=== PATIENT | female | born 1945 | race Caucasian/White ===

== ENCOUNTER 2017-11-08 10:46 | Outpatient (CLI) | payer OTHER ==
[2017-11-08 13:09] LABS: BASOPHILS % (AUTO) 0.4 % (0-1); EOSINOPHILS # (AUTO) 0.2 X10'3 (0-0.9); EOSINOPHILS % (AUTO) 3.6 % (0-6); HEMATOCRIT 38.4 % (35.0-45.0); HEMOGLOBIN 13.4 g/dl (12.0-16.0); LYMPHOCYTES # (AUTO) 1.6 X10'3 (1.1-4.8); LYMPHOCYTES % (AUTO) 26.9 % (21-51); MEAN CORPUSCULAR HEMOGLOBIN 30.6 PG (27.0-31.0); MEAN CORPUSCULAR HGB CONC 34.9 % (33.0-36.5); MEAN CORPUSCULAR VOLUME 87.5 FL (78-98); MEAN PLATELET VOLUME 9.9 FL (7.4-10.4); MONOCYTES # (AUTO) 0.4 X10'3 (0-0.9); MONOCYTES % (AUTO) 7.2 % (2-12); NEUTROPHILS # (AUTO) 3.6 X10'3 (1.8-7.7); NEUTROPHILS % (AUTO) 61.9 % (42-75); PLATELET COUNT 208 X10'3 (140-440); RED BLOOD COUNT 4.39 X10'6 (4.20-5.60); RED CELL DISTRIBUTION WIDTH 13.2 % (11.5-14.5); WHITE BLOOD COUNT 5.8 X10'3 (4.5-11.0)
[2017-11-08 13:36] LABS: ALBUMIN 4.3 G/DL (3.4-5.0); ANION GAP 11 (8-16); BLOOD UREA NITROGEN 21 MG/DL (7-18); BUN/CREATININE RATIO 22.8 (6.6-38.0); CALCIUM 9.1 MG/DL (8.5-10.1); CHLORIDE 106 MMOL/L (99-107); CREATININE 0.92 MG/DL (0.40-0.90); GLUCOSE 105 MG/DL (70-104); MAGNESIUM 2.1 MG/DL (1.5-2.4); POTASSIUM 3.5 MMOL/L (3.5-5.1); SODIUM 144 MMOL/L (135-145); TOTAL CARBON DIOXIDE 27.2 MMOL/L (24-32); eGFR 61 ML/MIN
== END 2017-11-08 23:59 | disposition home or self-care (01) ==
LOC: LAB 10:46
PROVIDERS: ATTEND Family Medicine
DX: R00.2 Palpitations (principal); I10 Essential (primary) hypertension
CPT/HCPCS: 36415; 80048; 83735; 84439; 84443; 85025

== ENCOUNTER 2017-11-16 08:03 | Outpatient (CLI) | payer OTHER ==
[2017-11-16] VITALS (7 sets, daily range): BP systolic 129–160; BP diastolic 63–76
[~2017-11-16] VITALS: Ht 170.2 cm; Wt 100.0 kg
[2017-11-16] MEDS ORDERED: regadenoson 0.4mg/5ml syringe IV ONE ×2 (08:40→09:26)
[2017-11-16] MEDS ORDERED: nitroGLYCERIN 0.4mg SUBLingual tab SL PRN (08:40)
[2017-11-16] MEDS ORDERED: metoprolol tartrate 1mg/ml inj IV PRN (08:40)
[2017-11-16] MEDS ORDERED: CAFFEINE CITRATE 60 MG/3 ML injection vial IV ONE (09:26)
== END 2017-11-16 23:59 | disposition home or self-care (01) ==
LOC: RAD 08:03
PROVIDERS: ATTEND Internal Medicine Cardiovascular Disease
DX: I08.0 Rheumatic disorders of both mitral and aortic valves (principal); I10 Essential (primary) hypertension; R00.1 Bradycardia, unspecified
CPT/HCPCS: 78452; 93017; 93306; A9500

== ENCOUNTER 2018-06-13 10:16 | Outpatient (CLI) | payer MEDICARE, OTHER ==
[2018-06-13 11:05] LABS: BASOPHILS % (AUTO) 0.6 % (0-1); EOSINOPHILS # (AUTO) 0.3 X10'3 (0-0.9); EOSINOPHILS % (AUTO) 4.5 % (0-6); HEMATOCRIT 42.8 % (35.0-45.0); HEMOGLOBIN 14.4 g/dl (12.0-16.0); LYMPHOCYTES # (AUTO) 1.7 X10'3 (1.1-4.8); LYMPHOCYTES % (AUTO) 28.7 % (21-51); MEAN CORPUSCULAR HGB CONC 33.5 % (33.0-36.5); MEAN CORPUSCULAR VOLUME 89.5 FL (78-98); MEAN PLATELET VOLUME 9.8 FL (7.4-10.4); MONOCYTES # (AUTO) 0.5 X10'3 (0-0.9); MONOCYTES % (AUTO) 8.9 % (2-12); NEUTROPHILS # (AUTO) 3.3 X10'3 (1.8-7.7); NEUTROPHILS % (AUTO) 57.3 % (42-75); PLATELET COUNT 227 X10'3 (140-440); RED BLOOD COUNT 4.78 X10'6 (4.20-5.60); WHITE BLOOD COUNT 5.8 X10'3 (4.5-11.0)
[2018-06-13 11:28] LABS: ALANINE AMINOTRANSFERASE 25 U/L (12-78); ALBUMIN 4.4 G/DL (3.4-5.0); ALBUMIN/GLOBULIN RATIO 1.5 (1.1-1.5); ALKALINE PHOSPHATASE 66 IU/L (46-116); ANION GAP 6 (8-16); ASPARTATE AMINO TRANSFERASE 19 U/L (10-37); BILIRUBIN,TOTAL 0.5 MG/DL (0.1-1.0); BLOOD UREA NITROGEN 13 MG/DL (7-18); BUN/CREATININE RATIO 18.6 (6.6-38.0); CALCIUM 8.5 MG/DL (8.5-10.1); CHLORIDE 104 MMOL/L (99-107); CHOL/HDL RATIO 4.7 (0.00-4.99); CHOLESTEROL 202 MG/DL (0-200); GLUCOSE 101 MG/DL (70-104); HDL CHOLESTEROL 43 MG/DL (35-60); LDL CHOLESTEROL 135 MG/DL (50-100); POTASSIUM 3.8 MMOL/L (3.5-5.1); SODIUM 140 MMOL/L (135-145); TOTAL CARBON DIOXIDE 29.6 MMOL/L (24-32); TOTAL PROTEIN 7.4 G/DL (6.4-8.2); TRIGLYCERIDES 156 MG/DL (20-135); eGFR 83 ML/MIN
== END 2018-06-13 23:59 | disposition home or self-care (01) ==
LOC: LAB 10:16
PROVIDERS: ATTEND Family Medicine
DX: I10 Essential (primary) hypertension (principal); G47.00 Insomnia, unspecified; E05.90 Thyrotoxicosis, unspecified without thyrotoxic crisis or storm; M25.559 Pain in unspecified hip
CPT/HCPCS: 36415; 80053; 80061; 84439; 84443; 85025

== ENCOUNTER 2018-06-27 09:46 | Outpatient (CLI) | payer MEDICARE, OTHER | END 2018-06-27 23:59 | disposition home or self-care (01) | LOC: RAD 09:46 | PROVIDERS: ATTEND Family Medicine | DX: E04.2 Nontoxic multinodular goiter (principal); E05.90 Thyrotoxicosis, unspecified without thyrotoxic crisis or storm; I10 Essential (primary) hypertension | CPT/HCPCS: 76536 ==

== ENCOUNTER 2018-09-23 08:30 | Inpatient (IN) | payer MEDICARE, OTHER | END 2018-09-26 12:25 | disposition home or self-care (01) | LOC: PAS IN 08:30 → ORTHO 4S 14:00 | PROC: 0SR90J9 Replacement of Right Hip Joint with Synthetic Substitute, Cemented, Open Approach (ICD-10-PCS; principal; 2018-09-23 10:07) | DX: M16.11 Unilateral primary osteoarthritis, right hip (principal) ==

== ENCOUNTER 2021-06-19 06:50 | Emergency (ER) | payer MEDICARE, OTHER ==
[~2021-06-19] VITALS: Ht 167.6 cm; Wt 104.5 kg
[~2021-06-19 06:50] MED LIST: AMLO1CAP6 PO; ASPI-1265 PO; ESCI5TAB PO; HYDR-3972 PO; SOTA80TA PO
[2021-06-19 06:57] VITALS: BP 189/76
[2021-06-19] MEDS ORDERED: LIDOcaine 1% W/epiNEPHrine 1:200,000 10ml vial IJ ONE (07:20)
[2021-06-19] MEDS ORDERED: LIDOcaine 1% w/epiNEPHrine 1:200,000 30ml vial IJ ONE (07:25)
[2021-06-19] MEDS ORDERED: LIDOcaine 1% W/epiNEPHrine 1:100,000 20ml vial IJ ONE (07:35)
[2021-06-19] MEDS ORDERED: bacitracin 15gm ointment TP ONE ×2 (08:20→08:21)
[2021-06-19] MEDS ORDERED: TETanus/Pertussis (Acell)/Diphther VAC/PF (Tdap-Adult) 0.5ml syringe IMVAC ONE (08:25)
== END 2021-06-19 08:43 | disposition home or self-care (01) ==
LOC: ER 06:50
DX: S61.311A Laceration without foreign body of left index finger with damage to nail, initial encounter (principal); Z72.89 Other problems related to lifestyle; Z79.82 Long term (current) use of aspirin; Z79.899 Other long term (current) drug therapy; W26.8XXA Contact with other sharp object(s), not elsewhere classified, initial encounter; Y93.89 Activity, other specified; Y92.89 Other specified places as the place of occurrence of the external cause; Y99.8 Other external cause status
CPT/HCPCS: 12001; 90471; 90715; 99283; J3490

== ENCOUNTER 2022-01-19 20:07 | Emergency (ER) | payer MEDICARE ==
[~2022-01-19] VITALS: Ht 167.6 cm; Wt 104.5 kg
[2022-01-19] MEDS ORDERED: loperamide 2mg capsule PO ONE (21:00)
[2022-01-19] MEDS ORDERED: ondansetron 4mg rapidly disintigrating tab PO ONE (21:00)
[2022-01-19] MEDS ORDERED: diphenoxylate/atropine 2.5mg/0.025mg per 5ml oral solution PO PRN (21:10)
[2022-01-19] MEDS ORDERED: diphenoxylate/atropine tablet (Lomotil) PO PRN (21:27)
[2022-01-19] MEDS: diphenoxylate/atropine tablet (Lomotil) PO PRN ×4 (21:33→23:24)
[2022-01-19 21:39] LABS: EOSINOPHILS # (AUTO) 0.1 X10'3 (0-0.9); HEMOGLOBIN 14.2 g/dl (12.0-16.0); MONOCYTES # (AUTO) 0.7 X10'3 (0-0.9)
[2022-01-19 21:40] LABS: NEUTROPHILS # (AUTO) 4.2 X10'3 (1.8-7.7)
[2022-01-19 21:44] LABS: BASOPHILS % (AUTO) 0.4 % (0-1); EOSINOPHILS % (AUTO) 1.5 % (0-6); HEMATOCRIT 41.5 % (35.0-45.0); LYMPHOCYTES % (AUTO) 16.9 % (21-51); MEAN CORPUSCULAR HEMOGLOBIN 30.4 PG (27.0-31.0); MEAN CORPUSCULAR HGB CONC 34.3 g/dL (33.0-36.5); MEAN CORPUSCULAR VOLUME 88.7 FL (78-98); MEAN PLATELET VOLUME 9.5 FL (7.4-10.4); MONOCYTES % (AUTO) 11.4 % (2-12); NEUTROPHILS % (AUTO) 69.8 % (42-75); PLATELET COUNT 210 X10'3 (140-440); RED BLOOD COUNT 4.67 X10'6 (4.20-5.60); RED CELL DISTRIBUTION WIDTH 13.5 % (11.5-14.5)
[2022-01-19 21:48] LABS: ALANINE AMINOTRANSFERASE 32 U/L (12-78); ALBUMIN 3.8 G/DL (3.4-5.0); ALBUMIN/GLOBULIN RATIO 1.1 (1.1-1.5); ALKALINE PHOSPHATASE 63 IU/L (46-116); ANION GAP 11 (8-16); ASPARTATE AMINO TRANSFERASE 35 U/L (10-37); BILIRUBIN,TOTAL 0.4 MG/DL (0.1-1.0); BLOOD UREA NITROGEN 25 MG/DL (7-18); BUN/CREATININE RATIO 21.7 (6.6-38.0); CALCIUM 8.3 MG/DL (8.5-10.1); CHLORIDE 105 MMOL/L (99-107); CREATININE 1.15 MG/DL (0.40-0.90); GLUCOSE 108 MG/DL (70-104); LIPASE 64 U/L (73-393); POTASSIUM 3.8 MMOL/L (3.5-5.1); SODIUM 141 MMOL/L (135-145); TOTAL CARBON DIOXIDE 25.1 MMOL/L (24-32); TOTAL PROTEIN 7.4 G/DL (6.4-8.2); eGFR 46 ML/MIN
[2022-01-19] MEDS ORDERED: normal saline 1000ml 1,000 ML IV ONE ×2 (22:00→22:25)
[2022-01-19] MEDS ORDERED: DIPH-186 PO (22:43)
[2022-01-19] MEDS ORDERED: ONDA4TAB12 PO (22:43)
--- NOTE | 2022-01-19 23:22 | NUR ---
IV DC'D PT BEING DISCHARGED. DRESSING APPLIED
== END 2022-01-19 23:25 | disposition home or self-care (01) ==
LOC: ER 20:08
DX: R19.7 Diarrhea, unspecified (principal); Z20.822 Contact with and (suspected) exposure to COVID-19; E86.0 Dehydration; R10.84 Generalized abdominal pain; Z79.899 Other long term (current) drug therapy; Z79.82 Long term (current) use of aspirin
CPT/HCPCS: 36415; 80053; 83690; 85025; 87635; 96360; 99284; C9803; J7030

== ENCOUNTER → 2023-12-26 | Outpatient (CLI) | payer MEDICARE ==
[~2023-12-26] MED LIST changes: +DIPH-186 PO; +ONDA4TAB12 PO
[2023-12-26 11:15] LABS: BILIRUBIN,URINE NEGATIVE (Neg); CLARITY,URINE SLIGHTLY CLOUDY (Clear); COLOR,URINE YELLOW (Yellow); GLUCOSE, URINE NEGATIVE (Neg); KETONES,URINE NEGATIVE (Neg); LEUKOCYTE ESTERASE ,URINE TRACE (Neg); NITRITES, URINE NEGATIVE (Neg); OCCULT BLOOD,URINE NEGATIVE (Neg); PROTEIN,URINE NEGATIVE (Neg); UROBILINOGEN,URINE 0.2 E.U/dL (0.2-1.0)
[2023-12-26 11:17] LABS: BASOPHILS % (AUTO) 0.5 % (0-1); EOSINOPHILS # (AUTO) 0.2 X10'3 (0-0.9); EOSINOPHILS % (AUTO) 3.7 % (0-6); HEMATOCRIT 40.5 % (35.0-45.0); HEMOGLOBIN 13.9 g/dl (12.0-16.0); LYMPHOCYTES # (AUTO) 1.1 X10'3 (1.1-4.8); LYMPHOCYTES % (AUTO) 22.4 % (21-51); MEAN CORPUSCULAR HEMOGLOBIN 30.9 PG (27.0-31.0); MEAN CORPUSCULAR HGB CONC 34.4 g/dL (33.0-36.5); MEAN CORPUSCULAR VOLUME 89.8 FL (78-98); MEAN PLATELET VOLUME 8.8 FL (7.4-10.4); MONOCYTES # (AUTO) 0.5 X10'3 (0-0.9); MONOCYTES % (AUTO) 8.9 % (2-12); NEUTROPHILS # (AUTO) 3.3 X10'3 (1.8-7.7); NEUTROPHILS % (AUTO) 64.5 % (42-75); PLATELET COUNT 250 X10'3 (140-440); RED BLOOD COUNT 4.51 X10'6 (4.20-5.60); RED CELL DISTRIBUTION WIDTH 13.4 % (11.5-14.5); WHITE BLOOD COUNT 5.1 X10'3 (4.5-11.0)
[2023-12-26 11:20] LABS: UA COLLECTION TYPE NON-SPECIFIED
[2023-12-26 11:21] LABS: MUCUS STRANDS FEW /LPF (Neg); SQUAMOUS EPITHELIAL CELL,UR MODERATE /LPF (FEW)
[2023-12-26 11:22] LABS: COARSE GRANULAR CAST 0-3 /LPF (NEGATIVE)
[2023-12-26 11:23] LABS: AMORPHOUS URATES 1+; WBC,URINE 0-4 /HPF (0-4)
[2023-12-26 11:24] LABS: BACTERIA,URINE FEW /HPF (Neg); RBC,URINE 0-2 /HPF (0-2)
[2023-12-26 11:44] LABS: ALANINE AMINOTRANSFERASE 26 U/L (12-78); ALBUMIN/GLOBULIN RATIO 1.2 (1.1-1.5); ALKALINE PHOSPHATASE 57 IU/L (46-116); ANION GAP 7 (8-16); ASPARTATE AMINO TRANSFERASE 16 U/L (10-37); BILIRUBIN,TOTAL 0.5 MG/DL (0.1-1.0); BLOOD UREA NITROGEN 18 MG/DL (7-18); BUN/CREATININE RATIO 23.1 (10.0-20.0); CALCIUM 8.5 MG/DL (8.5-10.1); CHLORIDE 103 MMOL/L (99-107); CHOL/HDL RATIO 4.9 (0.00-4.99); CHOLESTEROL 183 MG/DL (0-200); CREATININE 0.78 MG/DL (0.40-0.90); FREE T4 (FREE THYROXINE) 0.74 NG/DL (0.73-1.40); GLUCOSE 118 MG/DL (70-104); HDL CHOLESTEROL 37 MG/DL (35-60); LDL CHOLESTEROL 117 MG/DL (50-100); SODIUM 140 MMOL/L (135-145); THYROID STIMULATING HORMONE 2.24 ulU/ml (0.34-4.50); TOTAL CARBON DIOXIDE 30.4 MMOL/L (24-32); TOTAL PROTEIN 7.3 G/DL (6.4-8.2); TRIGLYCERIDES 188 MG/DL (20-135); eGFR 72 ML/MIN
[2023-12-27 11:59] LABS: CREATININE, URINE 109.4 mg/dL (Not Estab.); MICROALBUMIN,U,RANDOM 6.6 ug/mL (Not Estab.)
== END | disposition home or self-care (01) ==
LOC: LAB 10:06
PROVIDERS: ATTEND Family Medicine
DX: Z00.01 Encounter for general adult medical examination with abnormal findings (principal); Z13.220 Encounter for screening for lipoid disorders; I10 Essential (primary) hypertension; M25.561 Pain in right knee; E05.90 Thyrotoxicosis, unspecified without thyrotoxic crisis or storm; Z96.651 Presence of right artificial knee joint
CPT/HCPCS: 36415; 73564; 80053; 80061; 81001; 82043; 82570; 84439; 84443; 85025; 85651; 86140; 87088

== ENCOUNTER 2024-08-21 10:38 | Outpatient (CLI) | payer MEDICARE ==
[~2024-08-21 10:38] MED LIST changes: +ONDA-243 PO; -ONDA4TAB12 PO
[2024-08-21 11:16] LABS: BASOPHILS % (AUTO) 0.6 % (0-1); EOSINOPHILS # (AUTO) 0.2 X10'3 (0-0.9); EOSINOPHILS % (AUTO) 2.6 % (0-6); HEMATOCRIT 41.2 % (35.0-45.0); HEMOGLOBIN 14.3 g/dl (12.0-16.0); LYMPHOCYTES # (AUTO) 1.2 X10'3 (1.1-4.8); MEAN CORPUSCULAR HEMOGLOBIN 31.4 PG (27.0-31.0); MEAN CORPUSCULAR HGB CONC 34.7 g/dL (33.0-36.5); MEAN CORPUSCULAR VOLUME 90.6 FL (78-98); MEAN PLATELET VOLUME 9.2 FL (7.4-10.4); MONOCYTES # (AUTO) 0.5 X10'3 (0-0.9); MONOCYTES % (AUTO) 8.1 % (2-12); NEUTROPHILS # (AUTO) 4.3 X10'3 (1.8-7.7); NEUTROPHILS % (AUTO) 69.7 % (42-75); PLATELET COUNT 249 X10'3 (140-440); RED BLOOD COUNT 4.55 X10'6 (4.20-5.60); WHITE BLOOD COUNT 6.2 X10'3 (4.5-11.0)
[2024-08-21 11:42] LABS: ALANINE AMINOTRANSFERASE 22 U/L (12-78); ALBUMIN 4.2 G/DL (3.4-5.0); ALBUMIN/GLOBULIN RATIO 1.2 (1.1-1.5); ALKALINE PHOSPHATASE 59 IU/L (46-116); ANION GAP 6 (8-16); ASPARTATE AMINO TRANSFERASE 13 U/L (10-37); BILIRUBIN,TOTAL 0.5 MG/DL (0.1-1.0); BLOOD UREA NITROGEN 15 MG/DL (7-18); BUN/CREATININE RATIO 20.3 (10.0-20.0); CALCIUM 8.6 MG/DL (8.5-10.1); CHLORIDE 105 MMOL/L (99-107); CHOL/HDL RATIO 4.2 (0.00-4.99); CHOLESTEROL 217 MG/DL (0-200); CREATININE 0.74 MG/DL (0.40-0.90); FREE T4 (FREE THYROXINE) 0.87 NG/DL (0.73-1.40); GLUCOSE 80 MG/DL (70-104); HDL CHOLESTEROL 52 MG/DL (35-60); LDL CHOLESTEROL 139 MG/DL (50-100); POTASSIUM 4.2 MMOL/L (3.5-5.1); SODIUM 143 MMOL/L (135-145); TOTAL PROTEIN 7.8 G/DL (6.4-8.2); TRIGLYCERIDES 105 MG/DL (20-135); eGFR 76 ML/MIN
== END 2024-08-21 23:59 | disposition home or self-care (01) ==
LOC: LAB 10:38
PROVIDERS: ATTEND Nurse Practitioner
DX: I10 Essential (primary) hypertension (principal); R79.89 Other specified abnormal findings of blood chemistry; E55.9 Vitamin D deficiency, unspecified
CPT/HCPCS: 36415; 80053; 80061; 82306; 83036; 84439; 84443; 85025

== ENCOUNTER 2024-09-26 15:43 | Emergency (ER) | payer MEDICARE ==
[~2024-09-26] VITALS: Ht 166.4 cm; Wt 88.2 kg
[2024-09-26 15:52] VITALS: TEMP 97.9
[2024-09-26 16:57] LABS: BASOPHILS % (AUTO) 0.3 % (0-1); EOSINOPHILS # (AUTO) 0.2 X10'3 (0-0.9); HEMATOCRIT 40.1 % (35.0-45.0); HEMOGLOBIN 13.7 g/dl (12.0-16.0); LYMPHOCYTES # (AUTO) 1.1 X10'3 (1.1-4.8); LYMPHOCYTES % (AUTO) 12.8 % (21-51); MEAN CORPUSCULAR HEMOGLOBIN 31.1 PG (27.0-31.0); MEAN CORPUSCULAR HGB CONC 34.2 g/dL (33.0-36.5); MEAN CORPUSCULAR VOLUME 90.9 FL (78-98); MONOCYTES # (AUTO) 0.9 X10'3 (0-0.9); MONOCYTES % (AUTO) 11.1 % (2-12); NEUTROPHILS # (AUTO) 6.3 X10'3 (1.8-7.7); NEUTROPHILS % (AUTO) 73.8 % (42-75); PLATELET COUNT 206 X10'3 (140-440); RED BLOOD COUNT 4.41 X10'6 (4.20-5.60); RED CELL DISTRIBUTION WIDTH 13.6 % (11.5-14.5); WHITE BLOOD COUNT 8.6 X10'3 (4.5-11.0)
[2024-09-26] MEDS: morphine 4 MG/ML inj SYRINge IV ONE ×2 (16:59→18:02)
[2024-09-26] MEDS: ondansetron/PF 4mg/2ml inj IV ONE (16:59)
[2024-09-26 17:15] LABS: ALANINE AMINOTRANSFERASE 16 U/L (12-78); ALBUMIN 3.7 G/DL (3.4-5.0); ALBUMIN/GLOBULIN RATIO 0.9 (1.1-1.5); ALKALINE PHOSPHATASE 69 IU/L (46-116); ANION GAP 8 (8-16); ASPARTATE AMINO TRANSFERASE 12 U/L (10-37); BILIRUBIN,TOTAL 0.6 MG/DL (0.1-1.0); BLOOD UREA NITROGEN 15 MG/DL (7-18); BUN/CREATININE RATIO 23.1 (10.0-20.0); CALCIUM 8.4 MG/DL (8.5-10.1); CHLORIDE 104 MMOL/L (99-107); CREATININE 0.65 MG/DL (0.40-0.90); GLUCOSE 86 MG/DL (70-104); POTASSIUM 3.8 MMOL/L (3.5-5.1); SODIUM 141 MMOL/L (135-145); TOTAL CARBON DIOXIDE 28.9 MMOL/L (24-32); TOTAL PROTEIN 7.6 G/DL (6.4-8.2); eCRCL 68 ML/MIN; eGFR 89 ML/MIN
[2024-09-26] MEDS: dexamethasone sod phosphate 10mg/ml inj IV STA (18:01)
[2024-09-26 18:25] VITALS: BP 160/79; PULSE 80; RESP 18; O2SAT 96
[2024-09-26] MEDS: HYDROcodone/acetaminophen 10/325mg tab PO ONE (18:47)
[2024-09-26] MEDS ORDERED: HYDR-3972 PO ×2 (18:50→18:51)
== END 2024-09-26 19:14 | disposition home or self-care (01) ==
LOC: ER 15:43
DX: M50.322 Other cervical disc degeneration at C5-C6 level (principal); M54.2 Cervicalgia; R51.9 Headache, unspecified; I10 Essential (primary) hypertension; Z79.82 Long term (current) use of aspirin; Z79.899 Other long term (current) drug therapy; Z72.89 Other problems related to lifestyle
CPT/HCPCS: 36415; 70450; 72125; 80053; 85025; 93005; 96374; 96375; 99285; J1100; J2270; J2405

== ENCOUNTER 2024-10-10 08:21 | Outpatient (CLI) | payer MEDICARE, OTHER | END 2024-10-10 23:59 | disposition home or self-care (01) | LOC: MRI02 08:21 | PROVIDERS: ATTEND Nurse Practitioner | DX: M50.121 Cervical disc disorder at C4-C5 level with radiculopathy (principal); M48.02 Spinal stenosis, cervical region; M47.812 Spondylosis without myelopathy or radiculopathy, cervical region | CPT/HCPCS: 72141 ==

== ENCOUNTER 2025-02-05 09:32 | Outpatient (CLI) | payer MEDICARE, OTHER ==
--- NOTE | 2025-02-06 08:57 | RADIOLOGY REPORT ---
CLINICAL INDICATION: HIP BURSITIS COMPARISON: DI KNEE, COMP 4 VW MIN on DOS: 12/26/23 TECHNIQUE: Multiplanar, multi-sequence MRI of the right hip was performed without intravenous contrast. Contrast: None INTERPRETATION: Bones/joints: There is a right hip replacement. There susceptibility artifact from the presence of th e prosthesis. Remote from the prosthesis, the bone marrow signal is homogeneous and unremarkable. No marrow replacing lesion or fracture. Small right hip joint effusion. No synovitis. Tendons, muscles and bursae: There is no tendon abnormality. There is mild fatty replacement of the r ight gluteus minimus muscle, expected finding post surgery. No intramuscular edema. No bursitis. Other soft tissues: No lymphadenopathy. No pelvic free fluid. IMPRESSION: 1. Status post right hip replacement with artifact from the hardware limiting evaluation of regional structures. Small right hip joint effusion. No bursitis. No bone marrow signal abnormality.
== END 2025-02-05 23:59 | disposition home or self-care (01) ==
LOC: MRI 09:32
PROVIDERS: ATTEND Nurse Practitioner
DX: M48.02 Spinal stenosis, cervical region (principal); M54.2 Cervicalgia; Z96.641 Presence of right artificial hip joint
CPT/HCPCS: 73721

== ENCOUNTER 2025-03-16 14:13 | Outpatient (CLI) | payer MEDICARE, OTHER ==
--- NOTE | 2025-03-16 15:20 | RADIOLOGY REPORT ---
EXAM: MR MRI LUMBAR SPINE INDICATION: SPONDYLOSIS W/O MYELOPATHY OR RADICULOPATHY, LUMBAR REGION TECHNIQUE: Multiplanar, multisequence MR images of the lumbar spine were obtained without the adminis tration of IV contrast. COMPARISON: None FINDINGS: [ANATOMY]: Five lumbar-type vertebral bodies are present. The most inferior well-formed disc space wi ll be referred to as L5-S1 for purposes of numbering in this report. [VERTEBRAL BODIES]: The vertebral bodies are normal in height, alignment, and marrow signal. opposing endplate modic type 1 endplate degenerative change 5. [SPINAL CANAL]: The conus medullaris is normal in signal and morphology, terminating at the L1-L2 lev el. No significant spinal canal narrowing [FACETS]: Mild bilateral multilevel facet arthropathy. [OTHER]: Benign-appearing exophytic cysts of the left anterior kidney LEVEL BY LEVEL DISCUSSION: [T12-L1]: Unremarkable. [L1-L2]: Unremarkable. [L2-L3]: Trace broad-based posterior disc protrusion measuring 2-3 mm with bilateral inferior foramin al extension subsequent mild bilateral. Mild posterior epidural lipomatosis. Effacement of the later al recess [L3-L4]: 3 mm broad-based posterior disc protrusion bilateral inferior foraminal extension of the sma ll bilateral foraminal narrowing, severe of the left facet arthropathy [L4-L5]: 3 mm broad-based posterior disc protrusion with effacement of the lateral recesses severe fo raminal narrowing. Facet arthropathy [L5-S1]: 3 mm central disc protrusion with minimal left inferior foraminal extension mild bilateral f oraminal IMPRESSION: 1. Degenerative change as detailed above with the areas of foraminal narrowing and disc herniations. 2. Modic type 1 endplate degenerative change centered at L4-5, which may be symptomatic.
== END 2025-03-16 23:59 | disposition home or self-care (01) ==
LOC: MRI02 14:13
PROVIDERS: ATTEND Anesthesiology
DX: M51.27 Other intervertebral disc displacement, lumbosacral region (principal); M25.551 Pain in right hip; M47.816 Spondylosis without myelopathy or radiculopathy, lumbar region; M48.061 Spinal stenosis, lumbar region without neurogenic claudication; N28.1 Cyst of kidney, acquired
CPT/HCPCS: 72148

== ENCOUNTER 2025-06-26 15:04 | Outpatient (CLI) | payer MEDICARE, OTHER ==
[2025-06-26 15:43] LABS: MEAN PLATELET VOLUME 8.9 FL (7.4-10.4); RED CELL DISTRIBUTION WIDTH 13.5 % (11.5-14.5)
[2025-06-26 16:01] LABS: CHOL/HDL RATIO 4.1 (0.00-4.99); CREATININE 0.68 MG/DL (0.40-0.90); LDL CHOLESTEROL 149 MG/DL (50-100); TOTAL CARBON DIOXIDE 29.7 MMOL/L (24-32); eGFR 84 ML/MIN
== END 2025-06-26 23:59 | disposition home or self-care (01) ==
LOC: RAD 15:04
PROVIDERS: ATTEND Nurse Practitioner
DX: E66.01 Morbid (severe) obesity due to excess calories (principal); M70.70 Other bursitis of hip, unspecified hip; Z13.1 Encounter for screening for diabetes mellitus; R53.83 Other fatigue; E78.5 Hyperlipidemia, unspecified; E03.9 Hypothyroidism, unspecified; R79.89 Other specified abnormal findings of blood chemistry
CPT/HCPCS: 36415; 80053; 80061; 83036; 85025